=== PATIENT | female | born 1985 ===

== ENCOUNTER 2022-04-08 20:00 | Inpatient (IN) | payer BC ==
[2022-04-08] MEDS: LACTATED RINGERS SOLUTION 1,000 ML/1,000 ML INFUS.BAG IV SCH (21:00)
[2022-04-08 21:06] VITALS: BMI 36.0
[2022-04-08] MEDS ORDERED: DINOPROSTONE 10 MG VAGINAL SUPPOSITORY VG ONE (21:15)
[2022-04-08 22:07] LABS: BASO % 0.3 % (0-2.0); HEMATOCRIT 32.3 % (32.4-45.2); HEMOGLOBIN 10.6 GM/dL (10.7-15.3); LYMPH % 27.5 % (8-40); MCH 29.7 pg (25.7-33.7); MCHC 32.7 g/dl (32.0-36.0); MEAN CELL VOLUME 90.9 fl (80-96); MEAN PLT VOLUME 10.9 fl (7.5-11.1); MONO % 6.6 % (3.8-10.2); NEUT % 64.6 % (42.8-82.8); PLATELET COUNT 166 10^3/uL (134-434); RBC 3.55 M/mm3 (3.60-5.2); RDW 14.1 % (11.6-15.6); WHITE BLOOD COUNT 7.8 K/mm3 (4.0-10.0)
[2022-04-08 22:16] LABS: INR 0.94 (0.83-1.09); PROTHROMBIN TIME (PATIENT) 10.8 SEC (9.7-13.0)
[2022-04-08 22:19] LABS: ACTIVATED PTT 25.6 SECONDS (25.2-36.5)
[2022-04-08 22:27] LABS: BLOOD UREA NITROGEN 12.3 mg/dL (7-18)
[2022-04-08 22:30] LABS: CREATININE 0.6 mg/dL (0.55-1.3)
[2022-04-09] MEDS ORDERED: OXYTOCIN 30 UNITS in 0.9% NS 30 UNIT/500 ML INFUS.BAG IVPB SCH ×2 (10:00→20:00)
[2022-04-09] MEDS ORDERED: MISOPROSTOL 100 MCG TABLET PV ONE ×2 (11:00→15:40)
[2022-04-09] MEDS: LACTATED RINGERS SOLUTION 1,000 ML/1,000 ML INFUS.BAG IV SCH (11:20)
[2022-04-09] MEDS ORDERED: OXYTOCIN 30 UNITS in 0.9% NS 30 UNIT/500 ML INFUS.BAG IVPB ONE (20:01)
[2022-04-10] MEDS: LACTATED RINGERS SOLUTION 1,000 ML/1,000 ML INFUS.BAG IV SCH ×2 (03:00→09:00)
[2022-04-10] MEDS ORDERED: PROMETHAZINE HCL 25 MG/1 ML VIAL IVPUSH ONE (03:28)
[2022-04-10] MEDS ORDERED: BUTORPHANOL TARTRATE 1 MG/ML VIAL IVPB ONE (03:28)
[2022-04-10] MEDS ORDERED: PROMETHAZINE HCL 25 MG/1 ML VIAL ONE (04:02)
[2022-04-10] MEDS ORDERED: BUTORPHANOL TARTRATE 2 MG/ML VIAL ONE (04:02)
[2022-04-10] MEDS ORDERED: FENTANYL CITRATE/PF 50 MCG/ML VIAL ONE ×3 (08:11→15:05)
[2022-04-10] MEDS: FENTANYL/BUPIVACAINE/NS/PF - PCEA - 50 ML DISP.SYRIN EP SCH ×2 (08:35→13:57)
[2022-04-10] MEDS ORDERED: FENTANYL/BUPIVACAINE/NS/PF - PCEA - 50 ML DISP.SYRIN EP ONE ×2 (09:06→13:52)
[2022-04-10] MEDS ORDERED: NALOXONE HCL 0.4 MG/ML VIAL IVPUSH PRN (09:14)
[2022-04-10] MEDS ORDERED: FENTANYL/BUPIVACAINE/NS/PF - PCEA - 50 ML DISP.SYRIN EP SCH (09:40)
[2022-04-10] MEDS ORDERED: OXYTOCIN 30 UNITS in 0.9% NS 30 UNIT/500 ML INFUS.BAG IVPB ONE (15:05)
[2022-04-10] MEDS ORDERED: ACETAMINOPHEN 325 MG TABLET (FP) PO PRN (15:17)
[2022-04-10] MEDS ORDERED: METHYLERGONOVINE MALEATE 0.2 MG/1 ML AMP IM PRN (15:17)
[2022-04-10] MEDS ORDERED: morphine SULFATE/PF 1 MG/2 ML (2cc Syringe - QUVA) ONE (15:19)
[2022-04-10] MEDS ORDERED: ceFAZolin SODIUM 1 GM VIAL ONE (15:19)
[2022-04-10] MEDS ORDERED: DEXAMETHASONE SOD PHOSPHATE 4 MG/1 ML VIAL ONE (15:19)
[2022-04-10] MEDS ORDERED: ONDANSETRON 4 MG/2 ML VIAL ONE (15:19)
[2022-04-10] MEDS ORDERED: VASOPRESSIN 20 UNITS/ML VIAL IV ONE (15:59)
[2022-04-10 16:20] LABS: CORD HCO3 21.9 mmHg (20-29); CORD PCO2 49.9 mmHg (30-78)
[2022-04-10 16:23] LABS: CORD BASE EXCESS -3.1 mmol/L (0-2); CORD HCO3 22.1 mmHg (20-29); CORD PCO2 40.2 mmHg (30-78); CORD pH 7.358 (7.14-7.44)
[2022-04-10] MEDS ORDERED: OXYTOCIN 20 UNITS in 0.9% NS 20 UNIT/1,000 ML INFUS.BAG IV ONE (17:30)
[2022-04-10] MEDS: OXYTOCIN 20 UNITS in 0.9% NS 20 UNIT/1,000 ML INFUS.BAG IV SCH (17:35)
[2022-04-11] MEDS: OXYTOCIN 20 UNITS in 0.9% NS 20 UNIT/1,000 ML INFUS.BAG IV SCH ×2 (01:29→19:50)
[2022-04-11] MEDS ORDERED: oxyCODONE HCL 5 MG TABLET PO PRN ×2 (03:17)
[2022-04-11 08:51] LABS: BASO % 0.3 % (0-2.0); EOS % 0.7 % (0-4.5); HEMATOCRIT 28.1 % (32.4-45.2); HEMOGLOBIN 9.3 GM/dL (10.7-15.3); MCH 30.4 pg (25.7-33.7); MCHC 33.1 g/dl (32.0-36.0); MEAN CELL VOLUME 91.9 fl (80-96); MONO % 4.8 % (3.8-10.2); NEUT % 78.2 % (42.8-82.8); PLATELET COUNT 134 10^3/uL (134-434); RBC 3.06 M/mm3 (3.60-5.2); RDW 14.4 % (11.6-15.6); WHITE BLOOD COUNT 10.7 K/mm3 (4.0-10.0)
[2022-04-11] MEDS: ENOXAPARIN NA (PORCINE) 40 MG/0.4 ML DISP.SYRIN SQ SCH (09:11)
[2022-04-11] MEDS: IBUPROFEN 600 MG TABLET (FP) PO PRN ×3 (09:14→20:56)
[2022-04-11] MEDS: SIMETHICONE 80 MG TAB.CHEW (FP) PO PRN ×3 (09:14→20:56)
[2022-04-11] MEDS ORDERED: BISACODYL 10 MG SUPP.RECT RC PRN (15:17)
[2022-04-12] MEDS: ENOXAPARIN NA (PORCINE) 40 MG/0.4 ML DISP.SYRIN SQ SCH (09:43)
[2022-04-12] MEDS: IBUPROFEN 600 MG TABLET (FP) PO PRN ×3 (09:44→21:43)
[2022-04-12] MEDS: SIMETHICONE 80 MG TAB.CHEW (FP) PO PRN (21:49)
[2022-04-12 22:04] VITALS: RESP 16
[2022-04-13] MEDS: SIMETHICONE 80 MG TAB.CHEW (FP) PO PRN (08:01)
[2022-04-13] MEDS: IBUPROFEN 600 MG TABLET (FP) PO PRN (08:01)
[2022-04-13 09:49] LABS: BASO % 0.1 % (0-2.0); EOS % 2.7 % (0-4.5); HEMATOCRIT 29.7 % (32.4-45.2); LYMPH % 21.9 % (8-40); MCH 30.7 pg (25.7-33.7); MCHC 33.7 g/dl (32.0-36.0); MEAN CELL VOLUME 91.1 fl (80-96); MEAN PLT VOLUME 10.2 fl (7.5-11.1); MONO % 4.7 % (3.8-10.2); NEUT % 70.6 % (42.8-82.8); PLATELET COUNT 167 10^3/uL (134-434); RBC 3.26 M/mm3 (3.60-5.2); WHITE BLOOD COUNT 8.1 K/mm3 (4.0-10.0)
[2022-04-13 09:55] VITALS: BP 136/86; PULSE 68; TEMP 98
[2022-04-13] MEDS: ENOXAPARIN NA (PORCINE) 40 MG/0.4 ML DISP.SYRIN SQ SCH (10:57)
== END 2022-04-13 14:10 | disposition home or self-care (01) | DRG 788 ==
LOC: JLDR 20:00 → J3W 04-10 18:02
PROVIDERS: ADMIT Obstetrics & Gynecology; ATTEND Obstetrics & Gynecology
PROC: 0U7C7ZZ Dilation of Cervix, Via Natural or Artificial Opening (ICD-10-PCS; 2022-04-09)
PROC: 3E0P7VZ Introduction of Hormone into Female Reproductive, Via Natural or Artificial Opening (ICD-10-PCS; 2022-04-09)
PROC: 3E0P7VZ Introduction of Hormone into Female Reproductive, Via Natural or Artificial Opening (ICD-10-PCS; 2022-04-09)
PROC: 10D00Z1 Extraction of Products of Conception, Low, Open Approach (ICD-10-PCS; principal; 2022-04-11)
DX: O76 Abnormality in fetal heart rate and rhythm complicating labor and delivery (principal); O13.4 Gestational [pregnancy-induced] hypertension without significant proteinuria, complicating childbirth; O99.214 Obesity complicating childbirth; E66.9 Obesity, unspecified; Z3A.39 39 weeks gestation of pregnancy; Z37.0 Single live birth
CPT/HCPCS: 36415; 36600; 80048; 82803; 85025; 85610; 85730; 86780; 86850; 86900; 86901; 88307-TC; C9803-CS; U0003; U0005